=== PATIENT | female | born 1930 | race Caucasian/White ===

== ENCOUNTER → 2017-10-13 | Outpatient (REF) ==
[~2017-10-13] MED LIST: ASPIRIN 32325 MG/TAB PO; COMPAZINE 110 MG/TAB PO; MAXZIDE-25MG TA1 TAB PO; MEDROL 4MG DOSPA4 MG PO; MOBIC 7.5MG7.5 MG PO; PERCOCET 325 MG1 TA2 PO; XANAX 0.5MG0.5 MG PO; ZOFRAN 4MG T4 MG/TAB PO
== END ==
LOC: ZLAB.WCH 08:33
DX: Z01.89 Encounter for other specified special examinations (principal)